=== PATIENT | male | born 1980 | race American Indian/Alaskan Native ===

== ENCOUNTER 2019-02-19 17:16 | Emergency (ER) | payer OTHER ==
--- NOTE | 2019-02-19 17:28 | Emergency Department Report ---
Blank Doc - Documentation Documentation: 38 y/o male hit head on a pole and has a cut to right side of eyebrow. Not upd on vaccine. Patient is in custody.
[2019-02-19] MEDS ORDERED: TYLENOL PO ONE (19:58)
[2019-02-19] MEDS ORDERED: TENIVAC IM ONE (19:59)
[2019-02-19] MEDS ORDERED: XYLOCAINE 1%/ EPI 1:100,000 INFILTRATI NR (20:00)
--- NOTE | 2019-02-19 20:25 | Emergency Department Report ---
ED Head Trauma HPI - General Chief complaint: Wound/Laceration Stated complaint: GASH ON RT SIDE FOREHEAD ABOVE RT EYE Time Seen by Provider: 02/19/19 19:30 Source: patient Mode of arrival: Ambulatory Limitations: No Limitations - History of Present Illness Initial comments: The patient is a 38-year-old -Iranian male with no past medical history who presents to the ED with complaint of persistent severe headache and bleeding and painful right supraorbital scalp laceration after he accidentally hit his head against a metallic post when playing basketball about 6 hours ago, and which resulted in him falling onto the ground and hitting his head with a brief loss of consciousness. Patient denies nausea, vomiting, dizziness, syncope, seizures, neck pain, back pain, chest pain, shortness of breath, change in vision or numbness, tingling or weakness of upper and lower extremities bilaterally. Patient states that he is not up-to-date with his tetanus vaccinations. Patient is currently in halfway and in the ED was under the custody of [employer]. MD Complaint: head injury, head pain, fall -: Sudden, hour(s) (6) Time: 14:00 Mechanism of Injury: sports related injury, other (Hit his head against a metallic goal post) Location: temporal (right) Loss of Consciousness: yes, second(s) (few seconds according to the patient) Previous Trauma to this Area: No Place: home ([facility] ) Radiation: none Severity: severe Severity scale (0 -10): 8 Quality: sharp Consistency: constant Provoking factors: none known Other Injuries: laceration (right temporal scalp) Associated Symptoms: denies other symptoms, confusion, amnesia, vision changes, nausea, vomiting, vertigo, syncope, numbness, weakness, tingling, neck pain - Related Data Previous Rx's Medication Instructions Recorded Last Taken Type Ibuprofen [Motrin] 600 mg PO Q8H PRN #20 tablet 02/19/19 Unknown Rx cephALEXin [Keflex] 500 mg PO Q8HR #21 cap 02/19/19 Unknown Rx Allergies/Adverse reactions: Allergies Allergy/AdvReac Type Severity Reaction Status Date / Time No Known Allergies Allergy Verified 02/19/19 20:00 ED Review of Systems ROS: Stated complaint: GASH ON RT SIDE FOREHEAD ABOVE RT EYE Other details as noted in HPI Comment: All other systems reviewed and negative Constitutional: no symptoms reported, see HPI. denies: malaise, weakness Eyes: as per HPI. denies: eye pain, eye discharge ENT: as per HPI. denies: ear pain, throat pain, hearing loss, epistaxis Respiratory: no symptoms reported, see HPI. denies: cough, shortness of breath Cardiovascular: as per HPI. denies: chest pain, palpitations, syncope, paroxysmal nocturnal dyspnea Endocrine: no symptoms reported, see HPI. denies: excessive sweating, intolerance to heat Gastrointestinal: as per HPI. denies: abdominal pain, nausea, vomiting Musculoskeletal: as per HPI Skin: as per HPI, other (Bleeding painful laceration on right supraorbital area) Neurological: as per HPI Psychiatric: as per HPI Hematological/Lymphatic: as per HPI ED Past Medical Hx - Past Medical History Previous Medical History?: No - Surgical History Past Surgical History?: No - Social History Smoking Status: Never Smoker Substance Use Type: None - Medications Home Medications: Home Medications Medication Instructions Recorded Confirmed Last Taken Type Ibuprofen [Motrin] 600 mg PO Q8H PRN #20 tablet 02/19/19 Unknown Rx cephALEXin [Keflex] 500 mg PO Q8HR #21 cap 02/19/19 Unknown Rx ED Physical Exam - General Limitations: No Limitations General appearance: alert, in no apparent distress - Head Head exam: Present: other (Bleeding right supraorbital laceration measuring 4 cm ) - Eye Eye exam: Present: normal appearance, PERRL, EOMI Pupils: Present: normal accommodation - ENT ENT exam: Present: normal exam, normal orophraynx, mucous membranes moist, TM's normal bilaterally - Neck Neck exam: Present: normal inspection - Respiratory Respiratory exam: Present: normal lung sounds bilaterally. Absent: respiratory distress, wheezes, chest wall tenderness - Cardiovascular Cardiovascular Exam: Present: normal rhythm, bradycardia, normal heart sounds - GI/Abdominal GI/Abdominal exam: Present: soft, normal bowel sounds. Absent: tenderness - Rectal Rectal exam: Present: deferred - Extremities Exam Extremities exam: Present: normal inspection - Back Exam Back exam: Present: normal inspection - Neurological Exam Neurological exam: Present: alert, oriented X3, CN II-XII intact, normal gait, reflexes normal - Psychiatric Psychiatric exam: Present: normal affect - Skin Skin exam: Present: warm, dry - Expanded Skin Exam Expanded Type of lesion: Present: laceration (Right supraorbital bleeding 4 cm laceration) ED Course Vital Signs 02/19/19 17:26 Temperature 98.4 F Pulse Rate 56 L Respiratory 16 Rate Blood Pressure 100/59 O2 Sat by Pulse 95 Oximetry - Laceration /Wound Repair Face Wound Location: face Wound Length (cm): 4 Wound's Depth, Shape: superficial, linear Wound Explored: contaminated Irrigated w/ Saline (ccs): 10 Betadine Prep?: Yes Anesthesia: Lidocaine w/ Epi Volume Anesthetic (ccs): 4 Wound Debrided: extensive Wound Repaired With: sutures Suture Size/Type: 5:0 (prolene) Number of Sutures: 8 Layer Closure?: No Sterile Dressing Applied?: No Progress: Patient tolerated procedure - Radiology Data Radiology results: report reviewed, image reviewed - Medical Decision Making Patient is alert and oriented 3 and is not in distress with normal vital signs. Patient was treated for pain in the ED and head CT scan without contrast also ordered. The head CT scan without contrast showed no acute intracranial abnormalities or hemorrhage. The patient was also treated with tetanus vaccine. The patient's facial laceration was sutured per protocol after cleaning the wound and debriding the wound thoroughly, followed by application of local anesthetic, Lidocaine 1% w/epi. Patient tolerated the procedure well and the patient discharged back to halfway after reviewing the head CT scan imaging report. - Differential Diagnosis Facial and scalp contusion; skull fracture; intracranial hemorrhage - Core Measures AMI Core Measures Followed: No Measure Exclusions: not indicated - NEXUS Criteria Focal neurological deficit present: No Midline spinal tenderness present: No Altered level of consciousness: No Intoxication present: No Distracting injury present: No NEXUS results: C-Spine can be cleared clinically by these results. Imaging is not required. Critical care attestation.: If time is entered above; I have spent that time in minutes in the direct care of this critically ill patient, excluding procedure time. ED Disposition Clinical Impression: Acute post-traumatic headache, not intractable Laceration of scalp Qualifiers: Encounter type: initial encounter Qualified Code(s): S01.01XA - Laceration without foreign body of scalp, initial encounter Disposition: - TO HOME OR SELFCARE Is pt being admited?: No Does the pt Need Aspirin: No Condition: Stable Instructions: Laceration (ED), Scalp Contusion in Adults (ED), Acute Headache (ED) Additional Instructions: Take medications with food, drink plenty of fluids and follow-up with your local primary care physician in 5-7 days for reevaluation. Return to the emergency department immediately if his symptoms get worse. Otherwise follow-up with your primary care physician for suture removal in 8-10 days. Prescriptions: cephALEXin [Keflex] 500 mg PO Q8HR #21 cap Ibuprofen [Motrin] 600 mg PO Q8H PRN #20 tablet PRN Reason: Pain Referrals: PHOEBE ROBLES MD [Primary Care Provider] - 3-5 Days Time of Disposition: 22:00 Print Language: L[place]
--- NOTE | 2019-02-19 21:36 | Cat Scan Report ---
PROCEDURE: CT HEAD/BRAIN WO CON TECHNIQUE: Spiral CT imaging of the brain was obtained without the use of IV contrast. HISTORY: head injury . Pain. COMPARISONS: None FINDINGS: Brain: Brain density appears normal. No evidence of intracranial hemorrhage. No parenchymal hemorr malathi, mass lesions or mass effect are seen. No abnormal extra-axial fluid collects or masses are see n. Ventricles: Ventricles are normal size and are midline. Bone Windows: No evidence of skull fracture. Fat density nodule suggesting lipoma visualized right la teral aspect of the forehead this measures 2.8 x 0.6 cm.. Paranasal sinuses: Visualized portions appear clear.. Mastoid air cells: Visualized portions appear clear.. IMPRESSION: Negative unenhanced CT scan of the brain. No evidence of intracranial hemorrhage or skull fracture. Lipoma suspected lateral aspect right side of the forehead. This document is electronically signed by Wilbur Uriostegui MD., Feb 19 2019 09:34:19 PM ET
[2019-02-19 22:21] VITALS: BP 107/58
== END 2019-02-19 22:20 | disposition home or self-care (01) ==
LOC: ED 17:16 → EEVIPCON 17:16 → ED 22:20
DX: S01.01XA Laceration without foreign body of scalp, initial encounter (principal); S05.41XA Penetrating wound of orbit with or without foreign body, right eye, initial encounter; G44.319 Acute post-traumatic headache, not intractable; W22.8XXA Striking against or struck by other objects, initial encounter; Y93.89 Activity, other specified; Y92.89 Other specified places as the place of occurrence of the external cause; Y99.8 Other external cause status
CPT/HCPCS: 70450; 90471; 90714; 96372

== ENCOUNTER 2019-09-16 05:44 | Emergency (ER) | payer OTHER ==
[2019-09-16 05:51] VITALS: BP 127/54
[2019-09-16] MEDS ORDERED: TETANUS,DIPH,PERTUSS(ACELL) VACCINE 0.5 ML SYRINGE IM ONE (07:32)
[2019-09-16] MEDS ORDERED: IBUPROFEN 800 MG TAB PO ONE (07:33)
--- NOTE | 2019-09-16 07:34 | Emergency Department Report ---
ED Laceration HPI - HPI Chief Complaint: Wound/Laceration Stated Complaint: HEAD LAC Time Seen by Provider: 09/16/19 07:23 Occurred When: Today Location: Head Severity: mild Tetanus Status: Not up to Date Laceration Symptoms: Yes Pain, No Foreign Body Sensation, No Numbness, No Weakness Other History: Fell and hit head - lac 1 inch to back of head. no loc. here with PD for repair. no other injury. neuro intact ED Review of Systems ROS: Stated complaint: HEAD LAC Other details as noted in HPI Comment: All other systems reviewed and negative ED Past Medical Hx - Past Medical History Previous Medical History?: Yes Hx Asthma: Yes - Surgical History Past Surgical History?: No - Family History Family history: no significant - Social History Smoking Status: Former Smoker Substance Use Type: None - Medications Home Medications: Home Medications Medication Instructions Recorded Confirmed Last Taken Type Ibuprofen [Motrin] 800 mg PO Q8HR PRN #30 tablet 09/16/19 Unknown Rx Laceration Physical Exam - Exam General: Vital signs noted. No distress. Alert and acting appropriately. Laceration Location: Head Laceration Exam: Yes Normal Distal CMS, No Foreign Body, No Exposed Tendon, Vessel, or Nerve, No Tendon Injury ED Course Vital Signs 09/16/19 05:48 Temperature 98.1 F Pulse Rate 60 Respiratory 18 Rate Blood Pressure 127/54 O2 Sat by Pulse 95 Oximetry - Laceration /Wound Repair head Wound Location: head Wound Length (cm): 3 Wound's Depth, Shape: superficial Wound Explored: no foreign body removed Irrigated w/ Saline (ccs): 50 Betadine Prep?: Yes Layer Closure?: No Sterile Dressing Applied?: Yes Progress: 3 semaj to lac ED Medical Decision Making - Medical Decision Making simple lac no loc neuro intact no other injury wound care and repair dc with PD with instructions Vital Signs 09/16/19 05:48 Temperature 98.1 F Pulse Rate 60 Respiratory 18 Rate Blood Pressure 127/54 O2 Sat by Pulse 95 Oximetry Critical care attestation.: If time is entered above; I have spent that time in minutes in the direct care of this critically ill patient, excluding procedure time. ED Disposition Clinical Impression: Laceration Disposition: DC-01 TO HOME OR SELFCARE Is pt being admited?: No Does the pt Need Aspirin: No Condition: Stable Additional Instructions: RETURN TO ER IN 5-7 DAYS TO HAVE SEMAJ REMOVED CLEAN WOUND TWICE PER DAY WITH NORMAL SALINE/BETADINE MIXTURE MOTRIN FOR PAIN Prescriptions: Ibuprofen [Motrin] 800 mg PO Q8HR PRN #30 tablet PRN Reason: Pain, Moderate (4-6) Referrals: PRIMARY CARE, [Primary Care Provider] - 3-5 Days Time of Disposition: 07:30
== END 2019-09-16 07:45 | disposition home or self-care (01) ==
LOC: EDBD → ED 05:44
DX: S01.81XA Laceration without foreign body of other part of head, initial encounter (principal); J45.909 Unspecified asthma, uncomplicated; Z87.891 Personal history of nicotine dependence; Z79.1 Long term (current) use of non-steroidal anti-inflammatories (NSAID); X58.XXXA Exposure to other specified factors, initial encounter; Y93.89 Activity, other specified; Y92.89 Other specified places as the place of occurrence of the external cause; Y99.8 Other external cause status
CPT/HCPCS: 90715